=== PATIENT | male | born 1985 ===

== ENCOUNTER 2018-05-09 04:42 | Emergency (ER) | payer OTHER ==
[~2018-05-09] VITALS: Ht 182.9 cm; Wt 105.3 kg
[2018-05-09 04:43] VITALS: TEMP 36.4; Ht 182.9 cm; Wt 105.3 kg
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
[2018-05-09] MEDS ORDERED: OXYCODONE IR HOME PACK PO STA (06:13)
[2018-05-09] MEDS ORDERED: IBUPROFEN 600 MG TAB PO STA (06:13)
[2018-05-09 06:49] VITALS: BP 172/106; PULSE 100; O2SAT 100
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
== END 2018-05-09 06:45 | disposition home or self-care (01) ==
LOC: C.EDA 04:45
DX: M25.552 Pain in left hip (principal); V89.9XXA Person injured in unspecified vehicle accident, initial encounter; S61.219A Laceration without foreign body of unspecified finger without damage to nail, initial encounter; Z87.891 Personal history of nicotine dependence